=== PATIENT | female | born 1955 | race Caucasian/White ===

== ENCOUNTER → 2019-12-10 | Day surgery (SDC) | payer BC ==
[~2019-12-10] MED LIST: ANAPROX; ASA81BEC PO; AUGMENTIN 875875 MG PO; CHANTIX1 MG PO; CLARITIN10 M1 PO; LIPITOR 20 MG T20 M1 PO; MEDROLDOSEPACK PO; NORCO 5-325 TA1 EACH PO; PROTONIX; PROTONIX40 M1 PO; WELLBUTRIN XL150 MG PO
[2019-12-10 12:21] LABS: HEMATOCRIT 40.2 % (37.0-47.0); HEMOGLOBIN 13.8 gm/dL (12.0-15.0); MCH 30.3 pg (26.0-34.0); MCHC 34.2 g/dL (28.0-37.0); MCV 88.6 fL (80.0-100.0); MPV 8.6 fl. (7.2-11.1); RBC 4.54 mil/uL (4.20-5.00); RDW-CV 13.3 % (10.5-14.5)
[2019-12-10 12:33] LABS: POTASSIUM 4.1 mmol/L (3.5-5.1)
--- NOTE | 2019-12-10 15:33 | EKG ---
[place] [address] ELECTROCARDIOGRAM REPORT Name: ALAN GUERRA Room: [facility]#: [id number] Admission: 12/10/19 Attend Phys: Princess Hoskins, Discharge: Date of : 59 Date of Service: 12/10/19 1220 Report #: [id number] THIS REPORT FOR: //name// [facility] Test Date: 2019-12-10 Test Time: 12:20:27 Pat Name: ALAN ANNPABLITOPRERNA Department: Room: Gender: F Environmental Permitting Specialist: : 1955 Requested By: Princess Hoskins Order Number: [id number] Diallo MD: Joseph Redman Measurements Intervals [place] Rate: 57 P: 70 NE: 157 QRS: 52 QRSD: 108 T: 54 QT: 418 QTc: 407 Interpretive Statements Sinus rhythm Probable left atrial enlargement RSR' in V1 or V2, probably normal variant No previous ECG available for comparison Electronically Signed On 12-10-2019 15:32:08 CDT by Joseph Redman [email or web address] <ELECTRONICALLY SIGNED> By: Joseph Redman MD, [facility] 12/10/19 1532 1220 1220 Joseph Redman MD, [facility] /EPI
--- NOTE | 2019-12-12 08:03 | OP ---
[address] [address] OPERATIVE REPORT Name: ALAN GUERRA Room: [facility]#: [id number] Admission: 12/10/19 Attend Phys: Princess Hoskins DO Discharge: Date of : 59 Report #: [id number] THIS REPORT FOR: //name// cc: Yasir Sullivan Brad DO ~ THIS REPORT FOR: //name// CC: Yasir Hoskins DICTATED BY: Loan Del Cid DO DATE OF SERVICE: 12/10/2019 PREOPERATIVE DIAGNOSIS: Incisional hernia. POSTOPERATIVE DIAGNOSIS: Incisional hernia. PRIMARY SURGEON: Princess Hoskins DO PRECINCT POLICE LIEUTENANT: Loan Del Cid DO, PGY2 SECOND J2EE APPLICATION DEVELOPER: Adelso Anderson DO, PGY1 OPERATION PERFORMED: Incisional hernia repair with mesh. ANESTHESIA: General, local and TAP block. ESTIMATED BLOOD LOSS: 10 mL. SPECIMEN: Hernia sac. FINDINGS: A 5 cm x 2 cm supraumbilical incisional hernia, old hernia mesh was palpated superiorly and appeared to be intact. 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 She previously had an incisional hernia along the very superior aspect of her laparotomy incision and subsequently developed an incisional hernia in the supraumbilical area just along her previous incision, it was causing her discomfort. It was recommended that she undergo incisional hernia repair with mesh. The procedure, risks, benefits, possible complications to include bleeding, infection, injury to surrounding structures, mesh complications, need for additional surgery, risk of anesthesia, and other risks of surgery were discussed with the patient in great detail. She voiced complete understanding and [place] [address] OPERATIVE REPORT Name: ALAN GUERRA Room: [facility] Pito#: [id number] Admission: 12/10/19 Attend Phys: Princess Hoskins DO Discharge: Date of : 59 Report #: [id number] DESCRIPTION OF PROCEDURE: Informed consent was obtained, the patient was taken to the operating room and placed supine on the operating room table. Preoperative antibiotics were given and SCDs were placed on bilateral lower extremities. The abdomen was prepped and draped in the standard sterile fashion. A timeout was performed to ensure correct patient and procedure. We began by marking out our incision along her previous laparotomy incision just superior to the umbilicus, approximately 10 mL of 0.5% Marcaine were injected along our planned incision. A #10 blade scalpel was used to make a 6 cm incision in the supraumbilical region. The incision was carried down through the subcutaneous tissue using electrocautery. Combination of electrocautery and blunt dissection were used to dissect down to the level of the fascia. We encountered hernia sac. This did appear to be chronic. There was some scar tissue attaching the hernia sac to the surrounding tissues. Combination of electrocautery and blunt dissection were used to dissect all the way around the fascial defect. The hernia sac was then opened up and then excised from the surrounding tissues using electrocautery. The fascial edges were identified and grasped with a Ralph on the superior, inferior and then lateral aspect. We then used sharp dissection with Metzenbaum scissors to take down some of the intraabdominal adhesions, so that we had a sufficient landing zone for our mesh. Once this was completed, we then used electrocautery to clear away some of the subcutaneous tissues so the superior aspect of the fascia was visible. Our hernia defect was then measured and was approximately 5 cm x 2 cm. A medium Ventralex [place] mesh was brought onto the field. This was hydrated and then inserted through our fascial defect. The mesh was secured all around the defect using 2-0 Prolene suture in a wgefgl-az-[id number] fashion. The hernia defect was then closed over top of our mesh using 0 Prolene suture in a simple interrupted fashion. Approximately 20 mL of 0.5% Marcaine were used for local anesthesia. The subcutaneous tissues were closed using 0 Vicryl suture in a simple interrupted and inverted fashion. The skin was closed using 4-0 Monocryl suture in a running subcuticular fashion. Abdomen was cleansed and dried and Dermabond was applied to the incision. The patient tolerated the procedure very well. Anesthesia then performed a TAP block. The patient was then allowed to awaken in the operating room and was transferred to the PACU in stable condition with plans to discharge home later today. <ELECTRONICALLY SIGNED> By: Princess Hoskins DO 12/12/19 0803 1542 1617Chsammy Hoskins DO /[place]
--- NOTE | 2019-12-16 14:08 | PATH ---
[facility] [address] [place] [address] PATHOLOGY RPT PROCEDURE Name: ALAN GUERRA [id number] Admission: 12/10/19 Date of : 59 Discharge: Report #: [id number] Path Case #: [id number] [facility] Accession Number: [id number] . 01 Material submitted: . hernia - HERNIA SAC . 01 Clinical history: . Incisional hernia sac of anterior abdominal wall . 02 Diagnosis: Soft tissue "hernia sac", excision: - Mesothelial lined fibroadipose tissue with focal chronic inflammation. - Negative for malignancy. (RADHA:christy; 12/13/2019) MBR 12/13/2019 1737 Local . 02 Electronically signed: . Melida Boles MD, Pathologist NPI- [id number] . 01 Gross description: . The specimen is received in formalin, labeled "Lipowicz, Alan, hernia sac" and consists of pink-cornell membranous tissue with attached yellow lobulated tissue measuring 5.8 x 2.3 x 1.5 cm. Sectioning reveals no gross lesions and focal congestion. Information Systems Security Manager tissue is submitted in A1. (SDY; 12/11/2019) SYU/SYU 12/11/2019 1334 Local . 02 Pathologist provided ICD-10: K43.2 . 02 CPT . 088643 Specimen Comment: A courtesy copy of this report has been sent to [phone], [phone] Specimen Comment: [phone] Specimen Comment: Report sent to / DR BACA Performed at: 01 [facility] [address] [id number] MD Garth Brody MD Phone: [phone] Performed at: 02 [facility] [address] [id number] MD Cameron Gordon MD Phone: [phone]
== END | disposition home or self-care (01) ==
LOC: M.SUR 09:32
PROVIDERS: Surgery
DX: K43.2 Incisional hernia without obstruction or gangrene (principal); E78.5 Hyperlipidemia, unspecified; K21.9 Gastro-esophageal reflux disease without esophagitis; F17.210 Nicotine dependence, cigarettes, uncomplicated; Z98.890 Other specified postprocedural states; Z79.899 Other long term (current) drug therapy; Z11.59 Encounter for screening for other viral diseases; Z79.82 Long term (current) use of aspirin